=== PATIENT | female | born 1955 | race Caucasian/White ===

== ENCOUNTER 2023-01-23 12:27 | Emergency (ER) | payer MEDICAID, MEDICARE, OTHER ==
[2023-01-23 12:40] VITALS: BP 149/79; PULSE 81
[2023-01-23 13:19] LABS: APPEARANCE,URINE CLEAR (CLEAR); COLOR,URINE YELLOW (YELLOW)
[2023-01-23 13:20] LABS: GLUCOSE,URINE NEGATIVE (NEGATIVE); KETONES,URINE TRACE mg/dL (NEGATIVE); OCCULT BLOOD,URINE LARGE (NEGATIVE); PH,URINE 5.5 (4.5-8.0); PROTEIN,URINE 100 mg/dL (NEGATIVE)
[2023-01-23 13:21] LABS: LEUKOCYTE ESTERASE,URINE TRACE (NEGATIVE); NITRITE,URINE NEGATIVE (NEGATIVE)
[2023-01-23 13:23] LABS: BILIRUBIN,URINE SMALL (NEGATIVE)
[2023-01-23 13:30] LABS: BACTERIA,URINE MODERATE /HPF (NOT SEEN); EPITHELIAL CELLS,URINE OCCASIONAL /HPF (NOT SEEN); RBC,URINE 20-30 /HPF (0-5); WBC,URINE 50-75 /HPF (0-5)
== END 2023-01-23 13:43 | disposition home or self-care (01) ==
LOC: CC.ED 12:27
DX: N39.0 Urinary tract infection, site not specified (principal); K21.9 Gastro-esophageal reflux disease without esophagitis; I10 Essential (primary) hypertension; E66.9 Obesity, unspecified; Z68.42 Body mass index [BMI] 45.0-49.9, adult; Z88.0 Allergy status to penicillin; Z88.5 Allergy status to narcotic agent; Z79.899 Other long term (current) drug therapy; Z79.82 Long term (current) use of aspirin; Z90.49 Acquired absence of other specified parts of digestive tract
CPT/HCPCS: 81001; 87086; 87088; 87186; 99283